=== PATIENT | female | born 1930 | race Hispanic/Latino ===

== ENCOUNTER 2020-06-24 22:47 | Inpatient (IN) | payer MEDICARE ==
[~2020-06-24] VITALS: Ht 152.4 cm; Wt 39.2 kg
[~2020-06-24 22:47] MED LIST: CEPH500B PO; DOXY100T2 PO; LEVO25TA54 PO; NIFE30TA98 PO; PRED20TA3 PO
[2020-06-24 23:41] LABS: BASOPHILS % (AUTO) 0.6 % (0.0-5.0); EOSINOPHILS % (AUTO) 0.2 % (0.0-8.0); HEMATOCRIT 39.7 % (36-48); LYMPHOCYTES % (AUTO) 15.7 % (21.0-51.0); MEAN CORPUSCULAR HEMOGLOBIN 30.2 pg (27.0-33.0); MEAN CORPUSCULAR HGB CONC 31.2 g/dL (32.0-36.0); MEAN CORPUSCULAR VOLUME 96.6 fL (79-99); MONOCYTES % (AUTO) 4.9 % (3.0-13.0); NEUTROPHILS % (AUTO) 78.2 % (40.0-77.0); PLATELET COUNT (AUTO) 283 K/uL (130-400); RED BLOOD CELL COUNT(AUTO) 4.11 MIL/uL (4.00-5.50); RED CELL DISTRIBUTION WIDTH 13.1 % (11.0-15.5); WHITE BLOOD COUNT (AUTO) 12.4 K/uL (4.8-10.8)
[2020-06-24 23:42] LABS: CREATININE 0.6 mg/dL (0.5-1.5); POTASSIUM 3.6 mmol/L (3.5-5.1)
[2020-06-24 23:48] LABS: INR 0.98 (0.85-1.15); PROTHROMBIN TIME 10.7 SEC (9.6-11.6)
[2020-06-24 23:49] LABS: PARTIAL THROMBOPLASTIN TIME 27.4 SEC (26.3-35.5)
[2020-06-25] VITALS (7 sets, daily range): BP systolic 126–159; BP diastolic 58–91
[2020-06-25 00:31] LABS: B-TYPE NATRIURETIC PEPTIDE 787 pg/mL (0-100)
[2020-06-25 01:20] LABS: APPEARANCE,URINE Clear (CLEAR); BILIRUBIN,URINE Negative (NEGATIVE); COLOR,URINE Yellow (YELLOW); GLUCOSE, URINE (UA) Negative (NEGATIVE); KETONES,URINE Negative (NEGATIVE); LEUKOCYTE ESTERASE ,URINE Trace (NEGATIVE); NITRATE,URINE Negative (NEGATIVE); OCCULT BLOOD,URINE Small (NEGATIVE); PROTEIN,URINE Trace mg/dL (NEGATIVE)
[2020-06-25 01:29] LABS: BACTERIA,URINE Rare /HPF (None Seen); MUCUS,URINE Moderate LPF (None Seen)
[2020-06-25] MEDS ORDERED: CEFTRIAXONE 1G VIAL IV SCH (03:15)
[2020-06-25] MEDS ORDERED: ONDANSETRON 4MG INJ IV PRN (03:15)
[2020-06-25] MEDS ORDERED: FUROSEMIDE 40MG VIAL IVP ONE (03:15)
[2020-06-25] MEDS ORDERED: DOXYCYCLINE 100MG+NS 250ML 250 ML IV SCH (03:15)
[2020-06-25] MEDS ORDERED: ACETAMINOPHEN 325 MG TAB PO PRN (03:15)
[2020-06-25] MEDS ORDERED: DOXYCYCLINE 100MG+NS 250ML 250 ML IV ONE (03:42)
[2020-06-25] MEDS ORDERED: CEFTRIAXONE 1G VIAL ONE (03:42)
[2020-06-25] MEDS ORDERED: SOLU-MEDROL 40MG VIAL ONE (03:42)
[2020-06-25] MEDS ORDERED: FUROSEMIDE 20MG VIAL ONE ×2 (04:02→04:12)
[2020-06-25] MEDS ORDERED: 0.9%NACL 1000ML 1,000 ML IV ONE (05:22)
[2020-06-25] MEDS ORDERED: IPRATROPIUM/ALBUTEROL SULFATE 3 ML SOLUTION IH SCH (06:00)
[2020-06-25] MEDS: FAMOTIDINE 20MG VIAL IV SCH ×2 (08:54→21:43)
[2020-06-25] MEDS: ENOXAPARIN SODIUM 40 MG/0.4 ML SYRINGE SQ SCH (08:54)
[2020-06-25] MEDS: NIFEDIPINE ER 30 MG TAB PO SCH (08:55)
[2020-06-25] MEDS: BISACODYL 5 MG TABLET.DR PO SCH (08:55)
[2020-06-25] MEDS: DOCUSATE SODIUM 100 MG CAP PO SCH ×2 (08:55→21:43)
[2020-06-25] MEDS: LEVOTHYROXINE 25 MCG TABLET PO SCH (08:58)
[2020-06-25] MEDS: BUDESONIDE 0.5 MG/2 ML INH IH SCH ×2 (09:00→21:00)
[2020-06-25] MEDS ORDERED: SOLU-MEDROL 125MG VIAL IV SCH (09:00)
[2020-06-25] MEDS ORDERED: ZOSYN 3.375GM+NS 50ML 50 ML IV SCH (11:30)
[2020-06-25] MEDS ORDERED: MORPHINE 2 MG SYG IVP PRN (11:30)
[2020-06-25] MEDS: ZOSYN 3.375GM+NS 50ML 50 ML IV SCH ×2 (12:36→21:42)
[2020-06-25] MEDS: LACTATED RINGERS 1000ML 1,000 ML IV SCH (12:38)
[2020-06-25] MEDS: ALBUTEROL INHALER 90MCG/INH IH SCH (18:00)
[2020-06-25] MEDS: SOLU-MEDROL 125MG VIAL IV SCH (21:43)
[2020-06-26 03:25] VITALS: BP 141/65
[2020-06-26] MEDS: ZOSYN 3.375GM+NS 50ML 50 ML IV SCH ×3 (05:07→20:43)
[2020-06-26] MEDS: ALBUTEROL INHALER 90MCG/INH IH SCH ×4 (06:00→18:00)
[2020-06-26 06:11] LABS: BASOPHILS % (AUTO) 0.4 % (0.0-5.0); EOSINOPHILS % (AUTO) 0.1 % (0.0-8.0); LYMPHOCYTES % (AUTO) 12.5 % (21.0-51.0); MEAN CORPUSCULAR HEMOGLOBIN 30.1 pg (27.0-33.0); MEAN CORPUSCULAR HGB CONC 30.6 g/dL (32.0-36.0); MEAN CORPUSCULAR VOLUME 98.5 fL (79-99); NEUTROPHILS % (AUTO) 82.5 % (40.0-77.0); PLATELET COUNT (AUTO) 205 K/uL (130-400); RED BLOOD CELL COUNT(AUTO) 3.35 MIL/uL (4.00-5.50); RED CELL DISTRIBUTION WIDTH 13.4 % (11.0-15.5); WHITE BLOOD COUNT (AUTO) 13.3 K/uL (4.8-10.8)
[2020-06-26] MEDS: LEVOTHYROXINE 25 MCG TABLET PO SCH ×2 (06:26→06:30)
[2020-06-26 06:31] LABS: CREATININE 0.5 mg/dL (0.5-1.5); POTASSIUM 4.3 mmol/L (3.5-5.1)
[2020-06-26 06:49] LABS: B-TYPE NATRIURETIC PEPTIDE 481 pg/mL (0-100)
[2020-06-26 08:00] VITALS: BP 129/59
[2020-06-26] MEDS: LACTATED RINGERS 1000ML 1,000 ML IV SCH (08:40)
[2020-06-26] MEDS: ENOXAPARIN SODIUM 40 MG/0.4 ML SYRINGE SQ SCH (08:41)
[2020-06-26] MEDS: FAMOTIDINE 20MG VIAL IV SCH ×2 (08:41→20:43)
[2020-06-26] MEDS: NIFEDIPINE ER 30 MG TAB PO SCH (08:41)
[2020-06-26] MEDS: BISACODYL 5 MG TABLET.DR PO SCH (08:41)
[2020-06-26] MEDS: DOCUSATE SODIUM 100 MG CAP PO SCH ×2 (08:41→20:43)
[2020-06-26] MEDS: SOLU-MEDROL 125MG VIAL IV SCH ×2 (08:41→20:43)
[2020-06-26] MEDS: BUDESONIDE 0.5 MG/2 ML INH IH SCH ×2 (09:00→21:00)
[2020-06-26 11:24] VITALS: BP 138/67
[2020-06-26 16:10] VITALS: BP 116/60
[2020-06-26 19:34] VITALS: BP 131/52
[2020-06-26 23:51] VITALS: BP 132/58
[2020-06-27 04:05] VITALS: BP 142/62
[2020-06-27 04:52] LABS: BASOPHILS % (AUTO) 0.3 % (0.0-5.0); HEMATOCRIT 32.8 % (36-48); MEAN CORPUSCULAR HEMOGLOBIN 30.5 pg (27.0-33.0); MEAN CORPUSCULAR HGB CONC 29.9 g/dL (32.0-36.0); MEAN CORPUSCULAR VOLUME 102.2 fL (79-99); MONOCYTES % (AUTO) 4.4 % (3.0-13.0); NEUTROPHILS % (AUTO) 79.6 % (40.0-77.0); PLATELET COUNT (AUTO) 195 K/uL (130-400); RED BLOOD CELL COUNT(AUTO) 3.21 MIL/uL (4.00-5.50); RED CELL DISTRIBUTION WIDTH 13.4 % (11.0-15.5); WHITE BLOOD COUNT (AUTO) 11.9 K/uL (4.8-10.8)
[2020-06-27] MEDS: ZOSYN 3.375GM+NS 50ML 50 ML IV SCH ×3 (05:04→20:55)
[2020-06-27 05:06] LABS: CREATININE 0.5 mg/dL (0.5-1.5); POTASSIUM 4.1 mmol/L (3.5-5.1)
[2020-06-27] MEDS: LACTATED RINGERS 1000ML 1,000 ML IV SCH ×2 (05:55→23:30)
[2020-06-27] MEDS: LEVOTHYROXINE 25 MCG TABLET PO SCH (05:55)
[2020-06-27] MEDS: BUDESONIDE 0.5 MG/2 ML INH IH SCH ×2 (07:01→19:32)
[2020-06-27 08:00] VITALS: BP 135/55
[2020-06-27] MEDS: FAMOTIDINE 20MG VIAL IV SCH ×2 (11:24→20:55)
[2020-06-27] MEDS: SOLU-MEDROL 125MG VIAL IV SCH ×2 (11:24→20:55)
[2020-06-27 11:58] VITALS: BP 143/91
[2020-06-27] MEDS: ALBUTEROL INHALER 90MCG/INH IH SCH ×4 (12:00→21:56)
[2020-06-27] MEDS: NIFEDIPINE ER 30 MG TAB PO SCH (12:23)
[2020-06-27] MEDS: DOCUSATE SODIUM 100 MG CAP PO SCH ×2 (12:23→20:55)
[2020-06-27] MEDS: BISACODYL 5 MG TABLET.DR PO SCH (12:23)
[2020-06-27] MEDS: ENOXAPARIN SODIUM 40 MG/0.4 ML SYRINGE SQ SCH (12:24)
[2020-06-27 16:00] VITALS: BP 140/60
[2020-06-27 20:10] VITALS: BP 133/53
[2020-06-27 23:24] VITALS: BP 138/62
[2020-06-28 03:40] VITALS: BP 159/75
[2020-06-28] MEDS: ALBUTEROL INHALER 90MCG/INH IH SCH ×3 (04:41→13:23)
[2020-06-28] MEDS: LACTATED RINGERS 1000ML 1,000 ML IV SCH (04:41)
[2020-06-28] MEDS: ZOSYN 3.375GM+NS 50ML 50 ML IV SCH ×3 (04:41→19:35)
[2020-06-28] MEDS: LEVOTHYROXINE 25 MCG TABLET PO SCH (05:41)
[2020-06-28] MEDS: BUDESONIDE 0.5 MG/2 ML INH IH SCH ×2 (06:48→19:59)
[2020-06-28 08:01] VITALS: BP 139/69
[2020-06-28] MEDS ORDERED: SOLU-MEDROL 40MG VIAL ONE (08:29)
[2020-06-28] MEDS: SOLU-MEDROL 125MG VIAL IV SCH (09:00)
[2020-06-28] MEDS: BISACODYL 5 MG TABLET.DR PO SCH (10:04)
[2020-06-28] MEDS: DOCUSATE SODIUM 100 MG CAP PO SCH ×2 (10:04→19:35)
[2020-06-28] MEDS: NIFEDIPINE ER 30 MG TAB PO SCH (10:04)
[2020-06-28] MEDS: FAMOTIDINE 20MG VIAL IV SCH ×2 (10:06→19:34)
[2020-06-28] MEDS: ENOXAPARIN SODIUM 40 MG/0.4 ML SYRINGE SQ SCH (10:08)
[2020-06-28 11:06] VITALS: BP 161/64
[2020-06-28 16:42] VITALS: BP 135/56
[2020-06-28 19:54] VITALS: BP 129/56
[2020-06-28 23:45] VITALS: BP 130/59
[2020-06-29 04:00] VITALS: BP 150/64
[2020-06-29] MEDS: ZOSYN 3.375GM+NS 50ML 50 ML IV SCH ×3 (04:18→21:04)
[2020-06-29 05:05] LABS: BASOPHILS % (AUTO) 0.1 % (0.0-5.0); LYMPHOCYTES % (AUTO) 15.6 % (21.0-51.0); MEAN CORPUSCULAR HEMOGLOBIN 30.7 pg (27.0-33.0); MEAN CORPUSCULAR HGB CONC 30.3 g/dL (32.0-36.0); MEAN CORPUSCULAR VOLUME 101.2 fL (79-99); MONOCYTES % (AUTO) 5.4 % (3.0-13.0); PLATELET COUNT (AUTO) 139 K/uL (130-400); RED BLOOD CELL COUNT(AUTO) 3.26 MIL/uL (4.00-5.50); RED CELL DISTRIBUTION WIDTH 13.2 % (11.0-15.5)
[2020-06-29 05:15] LABS: CREATININE 0.4 mg/dL (0.5-1.5); POTASSIUM 3.5 mmol/L (3.5-5.1)
[2020-06-29] MEDS: LEVOTHYROXINE 25 MCG TABLET PO SCH (07:06)
[2020-06-29 08:00] VITALS: BP 159/61
[2020-06-29] MEDS: DOCUSATE SODIUM 100 MG CAP PO SCH ×2 (08:39→21:04)
[2020-06-29] MEDS: PREDNISONE 10 MG TABLET PO SCH (08:39)
[2020-06-29] MEDS: NIFEDIPINE ER 30 MG TAB PO SCH (08:39)
[2020-06-29] MEDS: ENOXAPARIN SODIUM 40 MG/0.4 ML SYRINGE SQ SCH (08:40)
[2020-06-29] MEDS: BISACODYL 5 MG TABLET.DR PO SCH (08:40)
[2020-06-29] MEDS: FAMOTIDINE 20MG VIAL IV SCH ×2 (08:40→21:04)
[2020-06-29] MEDS ORDERED: LORAZEPAM 2 MG/ML 1 ML VIAL IVP PRN (09:15)
[2020-06-29] MEDS: BUDESONIDE 0.5 MG/2 ML INH IH SCH ×2 (10:47→19:02)
[2020-06-29 11:43] VITALS: BP 152/80
[2020-06-29] MEDS ORDERED: IPRATROPIUM/ALBUTEROL SULFATE 3 ML SOLUTION IH ONE (11:51)
[2020-06-29 16:00] VITALS: BP 157/67
[2020-06-29 20:00] VITALS: BP 153/75
[2020-06-29] MEDS: LACTATED RINGERS 1000ML 1,000 ML IV SCH ×2 (21:06→21:15)
[2020-06-29 23:34] VITALS: BP 132/69
[2020-06-29] MEDS: IPRATROPIUM/ALBUTEROL SULFATE 3 ML SOLUTION IH SCH (23:38)
[2020-06-30 04:00] VITALS: BP 160/70
[2020-06-30] MEDS: ZOSYN 3.375GM+NS 50ML 50 ML IV SCH ×3 (05:27→20:29)
[2020-06-30] MEDS: IPRATROPIUM/ALBUTEROL SULFATE 3 ML SOLUTION IH SCH ×3 (07:03→18:20)
[2020-06-30] MEDS: BUDESONIDE 0.5 MG/2 ML INH IH SCH ×2 (07:03→18:20)
[2020-06-30 08:00] VITALS: BP 151/70
[2020-06-30] MEDS: LEVOTHYROXINE 25 MCG TABLET PO SCH (08:21)
[2020-06-30] MEDS: BISACODYL 5 MG TABLET.DR PO SCH (10:23)
[2020-06-30] MEDS: NIFEDIPINE ER 30 MG TAB PO SCH (10:23)
[2020-06-30] MEDS: FAMOTIDINE 20MG VIAL IV SCH ×2 (10:23→20:29)
[2020-06-30] MEDS: PREDNISONE 10 MG TABLET PO SCH (10:23)
[2020-06-30] MEDS: DOCUSATE SODIUM 100 MG CAP PO SCH ×2 (10:23→20:29)
[2020-06-30] MEDS: ENOXAPARIN SODIUM 40 MG/0.4 ML SYRINGE SQ SCH (10:24)
[2020-06-30 12:00] VITALS: BP 147/58
[2020-06-30] MEDS: ACETAMINOPHEN 325 MG TAB PO PRN ×2 (12:36→18:31)
[2020-06-30 16:00] VITALS: BP 126/57
[2020-06-30 20:00] VITALS: BP 136/67
[2020-06-30] MEDS: LACTATED RINGERS 1000ML 1,000 ML IV SCH (20:28)
[2020-07-01] VITALS: BP 136/65
[2020-07-01] MEDS: IPRATROPIUM/ALBUTEROL SULFATE 3 ML SOLUTION IH SCH ×3 (00:08→18:33)
[2020-07-01 04:00] VITALS: BP 138/61
[2020-07-01] MEDS: ZOSYN 3.375GM+NS 50ML 50 ML IV SCH ×3 (04:44→22:11)
[2020-07-01] MEDS: LEVOTHYROXINE 25 MCG TABLET PO SCH (06:16)
[2020-07-01 08:00] VITALS: BP 159/67
[2020-07-01] MEDS: DOCUSATE SODIUM 100 MG CAP PO SCH ×2 (09:24→22:11)
[2020-07-01] MEDS: PREDNISONE 10 MG TABLET PO SCH (09:24)
[2020-07-01] MEDS: NIFEDIPINE ER 30 MG TAB PO SCH (09:25)
[2020-07-01] MEDS: BISACODYL 5 MG TABLET.DR PO SCH (09:25)
[2020-07-01] MEDS: FAMOTIDINE 20MG VIAL IV SCH ×2 (09:25→22:11)
[2020-07-01] MEDS: ENOXAPARIN SODIUM 40 MG/0.4 ML SYRINGE SQ SCH (09:25)
[2020-07-01 11:00] VITALS: BP 147/70
[2020-07-01 16:00] VITALS: BP 130/61
[2020-07-01] MEDS: BUDESONIDE 0.5 MG/2 ML INH IH SCH (18:33)
[2020-07-01 20:18] VITALS: BP 122/49
[2020-07-01] MEDS: LACTATED RINGERS 1000ML 1,000 ML IV SCH (22:12)
[2020-07-02 00:04] VITALS: BP 131/54
[2020-07-02] MEDS: IPRATROPIUM/ALBUTEROL SULFATE 3 ML SOLUTION IH SCH ×4 (00:28→18:59)
[2020-07-02 04:05] VITALS: BP 128/59
[2020-07-02] MEDS: ZOSYN 3.375GM+NS 50ML 50 ML IV SCH ×2 (05:01→12:48)
[2020-07-02] MEDS: LEVOTHYROXINE 25 MCG TABLET PO SCH (05:51)
[2020-07-02 07:00] VITALS: BP 167/86
[2020-07-02] MEDS: BUDESONIDE 0.5 MG/2 ML INH IH SCH ×2 (08:02→18:59)
[2020-07-02] MEDS: FAMOTIDINE 20MG VIAL IV SCH (09:53)
[2020-07-02] MEDS: BISACODYL 5 MG TABLET.DR PO SCH (09:54)
[2020-07-02] MEDS: DOCUSATE SODIUM 100 MG CAP PO SCH (09:54)
[2020-07-02] MEDS: PREDNISONE 10 MG TABLET PO SCH (09:54)
[2020-07-02] MEDS: NIFEDIPINE ER 30 MG TAB PO SCH (09:54)
[2020-07-02] MEDS: ENOXAPARIN SODIUM 40 MG/0.4 ML SYRINGE SQ SCH (09:54)
[2020-07-02 09:55] LABS: BASOPHILS % (AUTO) 0.2 % (0.0-5.0); EOSINOPHILS % (AUTO) 0.1 % (0.0-8.0); HEMATOCRIT 36.7 % (36-48); LYMPHOCYTES % (AUTO) 11.7 % (21.0-51.0); MEAN CORPUSCULAR HEMOGLOBIN 30.6 pg (27.0-33.0); MEAN CORPUSCULAR VOLUME 101.9 fL (79-99); MONOCYTES % (AUTO) 3.4 % (3.0-13.0); PLATELET COUNT (AUTO) 99 K/uL (130-400); RED CELL DISTRIBUTION WIDTH 13.2 % (11.0-15.5); WHITE BLOOD COUNT (AUTO) 14.5 K/uL (4.8-10.8)
[2020-07-02 10:09] LABS: CREATININE 0.5 mg/dL (0.5-1.5)
[2020-07-02 11:30] VITALS: BP 149/71
[2020-07-02 16:00] VITALS: BP 135/64
[2020-07-03 07:00] VITALS: BP 123/53
[2020-07-03 11:30] VITALS: BP 126/55
[2020-07-03 16:00] VITALS: BP 130/54
== END 2020-07-02 18:59 | disposition hospice, inpatient (51) | DRG 177 ==
LOC: EDH 22:47 → EDHIP 06-25 03:06 → 4DH 06-25 05:05
PROVIDERS: ADMIT Internal Medicine; ATTEND Internal Medicine
PROC: 5A09357 Assistance with Respiratory Ventilation, Less than 24 Consecutive Hours, Continuous Positive Airway Pressure (ICD-10-PCS; principal; 2020-06-25)
PROC: 5A09357 Assistance with Respiratory Ventilation, Less than 24 Consecutive Hours, Continuous Positive Airway Pressure (ICD-10-PCS; 2020-06-26)
PROC: 5A09357 Assistance with Respiratory Ventilation, Less than 24 Consecutive Hours, Continuous Positive Airway Pressure (ICD-10-PCS; 2020-06-28)
DX: J15.6 Pneumonia due to other Gram-negative bacteria (principal); J96.21 Acute and chronic respiratory failure with hypoxia; J44.1 Chronic obstructive pulmonary disease with (acute) exacerbation; G93.40 Encephalopathy, unspecified; E87.1 Hypo-osmolality and hyponatremia; J44.0 Chronic obstructive pulmonary disease with (acute) lower respiratory infection; E46 Unspecified protein-calorie malnutrition; Z68.1 Body mass index [BMI] 19.9 or less, adult; R78.81 Bacteremia; K56.41 Fecal impaction; J84.10 Pulmonary fibrosis, unspecified; I10 Essential (primary) hypertension; E03.9 Hypothyroidism, unspecified; E11.9 Type 2 diabetes mellitus without complications; R33.9 Retention of urine, unspecified; Z20.822 Contact with and (suspected) exposure to COVID-19; T38.0X5A Adverse effect of glucocorticoids and synthetic analogues, initial encounter; D64.9 Anemia, unspecified; R53.81 Other malaise; Z66 Do not resuscitate; Z51.5 Encounter for palliative care; Z99.81 Dependence on supplemental oxygen; Y92.89 Other specified places as the place of occurrence of the external cause; Z74.01 Bed confinement status; Z98.49 Cataract extraction status, unspecified eye
CPT/HCPCS: 36415; 71045; 80048; 81001; 83880; 84145; 84484; 85025; 85610; 85730; 87040; 87077; 87186; 87426; 87804; 93005; 93356; 94640; 94660; 94664; C8929; G0378; J0696; J1650; J1940; J2060; J2543; J2920; J2930; J3490; J7030; J7120; J7512; U0003

== ENCOUNTER 2020-07-02 19:00 | Inpatient (IN) | payer OTHER ==
[~2020-07-02] VITALS: Ht 387.1 cm; Wt 37.4 kg
[2020-07-02 20:00] VITALS: BP 161/81
[2020-07-02] MEDS ORDERED: ONDANSETRON 4MG INJ IVP PRN (21:15)
[2020-07-02] MEDS ORDERED: ACETAMINOPHEN 650 MG SUPPOSITORY RC PRN (21:15)
[2020-07-02] MEDS ORDERED: LORAZEPAM 2 MG/ML 1 ML VIAL IVP PRN (21:15)
[2020-07-02] MEDS ORDERED: BISACODYL 10 MG SUPP.RECT RC PRN (21:15)
[2020-07-02] MEDS ORDERED: IPRATROPIUM/ALBUTEROL SULFATE 3 ML SOLUTION IH ONE (23:20)
[2020-07-03 07:00] VITALS: BP 123/53
[2020-07-03 11:30] VITALS: BP 126/55
[2020-07-03 16:00] VITALS: BP 130/54
[2020-07-03 19:32] VITALS: BP 139/59
[2020-07-04] MEDS: MORPHINE 2 MG SYG IVP PRN ×2 (00:44→16:08)
[2020-07-04 07:00] VITALS: BP 133/53
[2020-07-04 11:30] VITALS: BP 144/62
[2020-07-04 16:00] VITALS: BP 157/53
[2020-07-04] MEDS: GLYCOPYRROLATE 1 MG/5 ML SYRINGE IV PRN (18:38)
[2020-07-04 19:44] VITALS: BP 160/75
[2020-07-04 19:54] VITALS: BP 160/75
[2020-07-05] MEDS: GLYCOPYRROLATE 1 MG/5 ML SYRINGE IV PRN (02:34)
[2020-07-05] MEDS: MORPHINE 2 MG SYG IVP PRN (02:34)
[2020-07-05 08:23] VITALS: BP 148/54
[2020-07-05 11:46] VITALS: BP 147/61
[2020-07-05 16:40] VITALS: BP 143/53
[2020-07-05 19:51] VITALS: BP 150/91
[2020-07-05 23:35] VITALS: BP 129/54
[2020-07-06] MEDS: MORPHINE 2 MG SYG IVP PRN ×5 (04:04→16:55)
[2020-07-06 08:00] VITALS: BP 157/64
== END 2020-07-06 17:35 | disposition expired | DRG 189 ==
LOC: 4DH 19:00 → 3AH 07-06 01:30
PROVIDERS: ADMIT Internal Medicine; ATTEND Internal Medicine
DX: J96.21 Acute and chronic respiratory failure with hypoxia (principal); J84.10 Pulmonary fibrosis, unspecified; J44.9 Chronic obstructive pulmonary disease, unspecified; E03.9 Hypothyroidism, unspecified; I10 Essential (primary) hypertension; Z20.822 Contact with and (suspected) exposure to COVID-19; R62.7 Adult failure to thrive; Z66 Do not resuscitate; F41.9 Anxiety disorder, unspecified; R53.81 Other malaise; Z51.5 Encounter for palliative care; Z99.81 Dependence on supplemental oxygen; Z98.49 Cataract extraction status, unspecified eye
CPT/HCPCS: G0378